=== PATIENT | female | born 2000 | race Two or more races ===

== ENCOUNTER 2020-08-08 14:51 | Emergency (ER) | payer OTHER ==
[~2020-08-08] VITALS: Ht 154.9 cm; Wt 47.6 kg
[2020-08-08] MEDS ORDERED: PATADAY2.5 ML OP (15:53)
[2020-08-08] MEDS ORDERED: CLARITIN10 M1 PO (15:53)
== END 2020-08-08 16:01 | disposition home or self-care (01) ==
LOC: ER 14:51 → EMR PED 15:35
DX: H11.422 Conjunctival edema, left eye (principal)